=== PATIENT | male | born 1935 | race Caucasian/White ===

== ENCOUNTER 2017-04-19 08:36 | Inpatient (IN) | payer OTHER ==
[2017-04-15 12:02] LABS: Basophils # (auto) 0.1 uL; Basophils % (auto) 0.7 % (0.0-2.0); Eosinophils # (auto) 0.1 uL; Hematocrit 43.4 % (41.0-53.0); Hemoglobin 14.4 g/dL (13.5-17.5); Lymphocytes # (auto) 2.5 uL; Lymphocytes % (auto) 31.1 % (10.0-50.0); Mean Corpuscular Hemoglobin 29.2 pg (28.0-32.0); Mean Corpuscular Hgb Conc. 33.1 g/dL (32.0-36.0); Mean Corpuscular Volume 88.1 fL (80.0-100.0); Monocytes # (auto) 0.8 uL; Monocytes % (auto) 10.5 % (0.0-12.0); Neutrophils # (auto) 4.5 uL; Neutrophils % (auto) 56.7 % (37.0-80.0); Platelet Count (auto) 410 10^3/uL (140-450); Red Blood Cells 4.92 10^6/uL (4.5-5.90); White Blood Cell 7.9 10^3/uL (4.4-10.8)
[2017-04-15 12:15] LABS: INR 1.05 (0.9-1.15); Partial Thromboplastin Time 29.1 sec (22.64-33.71); Prothrombin Time 11.5 sec (9.37-12.3)
[2017-04-15 12:23] LABS: Urine Bacteria FEW /hpf (None Seen); Urine Blood TRACE /uL (Negative); Urine Mucus FEW (None Seen); Urine Specific Gravity 1.023 (1.001-1.035); Urine WBC 20 /hpf (0 - 3)
[2017-04-15 12:38] LABS: BUN/Creatinine Ratio 12.4; Calcium 9.2 mg/dL (8.5-10.1); Potassium 4.3 mmol/L (3.5-5.1)
[~2017-04-19] VITALS: Ht 170.2 cm; Wt 69.1 kg
[~2017-04-19 08:36] MED LIST: LISI2.5T47 PO; METF-370 PO; SIMV-13 PO; TAMS0.4C36 PO
[2017-04-19] MEDS ORDERED: ceFAZolin 1GM/50ML 50 ML IV ONE (09:17)
[2017-04-19] MEDS ORDERED: fentaNYL CITRATE 100 MCG/2 ML VL ONE ×2 (11:54→14:09)
[2017-04-19] MEDS ORDERED: MEPERIDINE HCL (50 MG/ML) 1 ML VIAL ONE (11:55)
[2017-04-19] MEDS ORDERED: MIDAZOLAM HCL 1MG/1ML-2 ML VIAL ONE (11:55)
[2017-04-19] MEDS ORDERED: DEXAMETHASONE SOD PHOS 10MG/1ML VIAL INJ ONE (12:27)
[2017-04-19] MEDS ORDERED: PROPOFOL 10 MG/ML 20 ML IV ONE (12:27)
[2017-04-19] MEDS ORDERED: LABETALOL HCL 5 MG/ML 4ML SYRINGE IV PRN (12:45)
[2017-04-19] MEDS ORDERED: ePHEDrine SULFATE 50 MG/ML AMP IV PRN (12:45)
[2017-04-19] MEDS ORDERED: ONDANSETRON HCL 4 MG/2 ML VIAL IV ONE (12:45)
[2017-04-19] MEDS ORDERED: KETOROLAC TROMETH 30 MG/ML 1ML VIAL IV ONE (12:45)
[2017-04-19] MEDS ORDERED: ACCU-CHEK COMFORT CURVE STRIP VI ONE (12:45)
[2017-04-19] MEDS ORDERED: MIDAZOLAM HCL 1MG/1ML-2 ML VIAL IV PRN ×2 (12:45→14:30)
[2017-04-19] MEDS ORDERED: HYDROmorphone HCL 2 MG/ML VL IV PRN (12:45)
[2017-04-19] MEDS ORDERED: SUCCINYLCHOLINE CHLORIDE 20 MG/ML 10ML VIAL IV ONE (12:59)
[2017-04-19] MEDS ORDERED: MORPHINE SULF INJ 2 MG/ML SYRINGE 1ML IV ONE (14:00)
[2017-04-19] MEDS: MIDAZOLAM HCL 1MG/1ML-2 ML VIAL ONE ×2 (14:05→14:10)
[2017-04-19 14:30] VITALS: BP 135/71
[2017-04-19] MEDS ORDERED: fentaNYL CITRATE 100 MCG/2 ML VL IV ONE (15:00)
[2017-04-19] MEDS ORDERED: FUROSEMIDE 20 MG/2 ML VIAL ONE (15:20)
[2017-04-19] MEDS ORDERED: FUROSEMIDE 20 MG/2 ML VIAL IV ONE (15:30)
[2017-04-19 16:00] VITALS: BP 135/71
[2017-04-19] MEDS ORDERED: ACETAMINOPHEN 325 MG TAB PO PRN (16:00)
[2017-04-19] MEDS ORDERED: cefTRIAXone 1GM/10ml IVPUSH 10 ML IV ONE (16:00)
[2017-04-19] MEDS ORDERED: DEXTROSE (50%) 50ML SYRG IV PRN (16:00)
[2017-04-19] MEDS ORDERED: DOCUSATE SOD 100 MG CAP PO PRN (16:00)
[2017-04-19] MEDS ORDERED: HYDROcodone-ACET 5/325MG TAB PO PRN (16:00)
[2017-04-19] MEDS ORDERED: NITROGLYCERIN 0.4 MG SL TAB SL PRN (16:00)
[2017-04-19] MEDS ORDERED: MORPHINE SULFATE 10 MG/ML INJ 1ML SDV IV PRN ×2 (16:00)
[2017-04-19] MEDS ORDERED: ONDANSETRON HCL 4 MG/2 ML VIAL IV PRN (16:00)
[2017-04-19] MEDS: SODIUM CHLORIDE 0.9% 1,000 ML IV SCH (16:35)
[2017-04-19] MEDS: ACCU-CHEK COMFORT CURVE STRIP VI SCH ×2 (16:36→22:32)
[2017-04-19] MEDS: InsuLIN REG 1unit/0.01ml Soln (100units/ml) SC SCH ×2 (17:00→22:31)
[2017-04-19 22:00] VITALS: BP 122/61
[2017-04-19] MEDS: FAMOTIDINE 20 MG TAB PO SCH (22:31)
[2017-04-19] MEDS: ATORVASTATIN 20 MG TAB PO SCH (22:31)
[2017-04-20] MEDS: HALOPERIDOL 1 MG TAB PO PRN ×2 (03:52→09:28)
[2017-04-20 05:00] VITALS: BP 105/59
[2017-04-20] MEDS: ACCU-CHEK COMFORT CURVE STRIP VI SCH ×4 (06:12→22:23)
[2017-04-20] MEDS: InsuLIN REG 1unit/0.01ml Soln (100units/ml) SC SCH ×4 (06:12→22:00)
[2017-04-20] MEDS: SODIUM CHLORIDE 0.9% 1,000 ML IV SCH (06:13)
[2017-04-20 06:55] LABS: Basophils # (auto) 0 uL; Basophils % (auto) 0.2 % (0.0-2.0); Eosinophils # (auto) 0 uL; Hematocrit 40.1 % (41.0-53.0); Hemoglobin 13.2 g/dL (13.5-17.5); Lymphocytes # (auto) 1.3 uL; Lymphocytes % (auto) 9.9 % (10.0-50.0); Mean Corpuscular Hemoglobin 28.7 pg (28.0-32.0); Mean Corpuscular Hgb Conc. 32.8 g/dL (32.0-36.0); Mean Corpuscular Volume 87.7 fL (80.0-100.0); Monocytes # (auto) 1.1 uL; Monocytes % (auto) 7.9 % (0.0-12.0); Neutrophils # (auto) 11.1 uL; Platelet Count (auto) 398 10^3/uL (140-450); Red Blood Cells 4.58 10^6/uL (4.5-5.90); Red Cell Distribution Width 14.8 % (11.8-14.3); White Blood Cell 13.5 10^3/uL (4.4-10.8)
[2017-04-20 07:24] LABS: BUN/Creatinine Ratio 17.6; Bilirubin, Total 0.3 mg/dL (0.2-1.0); Calcium 8.7 mg/dL (8.5-10.1); Total Protein 6.9 g/dL (6.4-8.2)
[2017-04-20 07:55] VITALS: BP 122/57
[2017-04-20 08:00] VITALS: BP 122/57
[2017-04-20] MEDS: MULTIPLE VITAMIN TAB PO SCH (09:27)
[2017-04-20] MEDS: cefTRIAXone 1GM/10ml IVPUSH 10 ML IV SCH (09:27)
[2017-04-20] MEDS: LISINOPRIL 5 MG TAB PO SCH (09:28)
[2017-04-20] MEDS: FAMOTIDINE 20 MG TAB PO SCH ×2 (09:28→22:53)
[2017-04-20 12:05] VITALS: BP 119/55
[2017-04-20] MEDS ORDERED: HALOPERIDOL LACTATE 5 MG/ML INJ VIAL IM ONE (16:45)
[2017-04-20 17:30] VITALS: BP 128/68
[2017-04-20] MEDS ORDERED: INFLUENZA QUAD 2017-2018 0.5 ML SYRG IM ONE (19:00)
[2017-04-20] MEDS ORDERED: PNEUMOCOCCAL VACC POLYS 25 MCG/0.5 ML VIAL IM ONE (19:00)
[2017-04-20 20:00] VITALS: BP 139/76
[2017-04-20] MEDS: ATORVASTATIN 20 MG TAB PO SCH (22:53)
[2017-04-21] VITALS (7 sets, daily range): BP systolic 119–144; BP diastolic 61–79
[2017-04-21] MEDS: SODIUM CHLORIDE 0.9% 1,000 ML IV SCH (01:10)
[2017-04-21] MEDS: HALOPERIDOL 1 MG TAB PO PRN (03:09)
[2017-04-21] MEDS: InsuLIN REG 1unit/0.01ml Soln (100units/ml) SC SCH ×2 (05:55→11:30)
[2017-04-21] MEDS: ACCU-CHEK COMFORT CURVE STRIP VI SCH ×2 (05:56→11:40)
[2017-04-21 06:59] LABS: Basophils # (auto) 0.1 uL; Basophils % (auto) 0.9 % (0.0-2.0); Eosinophils # (auto) 0 uL; Eosinophils % (auto) 0.1 % (0.0-7.0); Hematocrit 39.7 % (41.0-53.0); Hemoglobin 13.3 g/dL (13.5-17.5); Lymphocytes # (auto) 1.4 uL; Lymphocytes % (auto) 12.2 % (10.0-50.0); Mean Corpuscular Hemoglobin 29.2 pg (28.0-32.0); Mean Corpuscular Hgb Conc. 33.6 g/dL (32.0-36.0); Monocytes # (auto) 1.2 uL; Monocytes % (auto) 10.2 % (0.0-12.0); Neutrophils # (auto) 8.9 uL; Neutrophils % (auto) 76.6 % (37.0-80.0); Nucleated Red Blood Cells % 0.1 %; Platelet Count (auto) 391 10^3/uL (140-450); Red Blood Cells 4.57 10^6/uL (4.5-5.90); Red Cell Distribution Width 14.8 % (11.8-14.3); White Blood Cell 11.7 10^3/uL (4.4-10.8)
[2017-04-21 07:46] LABS: BUN/Creatinine Ratio 13.5; Magnesium 2.2 mg/dL (1.6-2.6); Potassium 3.8 mmol/L (3.5-5.1)
[2017-04-21] MEDS: cefTRIAXone 1GM/10ml IVPUSH 10 ML IV SCH (09:35)
[2017-04-21] MEDS: MULTIPLE VITAMIN TAB PO SCH (09:36)
[2017-04-21] MEDS: FAMOTIDINE 20 MG TAB PO SCH (09:36)
[2017-04-21] MEDS: LISINOPRIL 5 MG TAB PO SCH (09:36)
[2017-04-21] MEDS ORDERED: Boost Glucose Control 8 Ounces PO SCH (22:00)
== END 2017-04-21 16:59 | disposition home health service (06) | DRG 668 ==
LOC: SUR 08:36 → TELE-EAST 08:37
PROVIDERS: ADMIT Urology; ATTEND Internal Medicine
PROC: 0TBB8ZZ Excision of Bladder, Via Natural or Artificial Opening Endoscopic (ICD-10-PCS; principal; 2017-04-19 11:58)
PROC: 0TCB8ZZ Extirpation of Matter from Bladder, Via Natural or Artificial Opening Endoscopic (ICD-10-PCS; 2017-04-19 11:58)
DX: D49.4 Neoplasm of unspecified behavior of bladder (principal); G92 Toxic encephalopathy; N17.9 Acute kidney failure, unspecified; F05 Delirium due to known physiological condition; F02.80 Dementia in other diseases classified elsewhere, unspecified severity, without behavioral disturbance, psychotic disturbance, mood disturbance, and anxiety; N39.0 Urinary tract infection, site not specified; E11.21 Type 2 diabetes mellitus with diabetic nephropathy; G30.0 Alzheimer's disease with early onset; N21.0 Calculus in bladder; N18.3 Chronic kidney disease, stage 3 (moderate); I12.9 Hypertensive chronic kidney disease with stage 1 through stage 4 chronic kidney disease, or unspecified chronic kidney disease; E11.22 Type 2 diabetes mellitus with diabetic chronic kidney disease; E78.5 Hyperlipidemia, unspecified; N40.0 Benign prostatic hyperplasia without lower urinary tract symptoms; Z23 Encounter for immunization; Z82.49 Family history of ischemic heart disease and other diseases of the circulatory system; Z85.51 Personal history of malignant neoplasm of bladder; Z90.79 Acquired absence of other genital organ(s); Z79.4 Long term (current) use of insulin
CPT/HCPCS: 36415; 70450; 80048; 80053; 81001; 82962; 83036; 83735; 85025; 85610; 85730; 87081; 87086; 92610; 93306; 93886; 97163; J0330; J0690; J1100; J1815; J2250; J2704